=== PATIENT | male | born 1995 ===

== ENCOUNTER 2018-06-11 11:21 | Emergency (ER) | payer OTHER ==
[2018-06-11 11:24] VITALS: BMI 35.9
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
[2018-06-11 14:52] VITALS: BP 119/69; PULSE 76; RESP 17; TEMP 98
[2018-06-11 20:56] VITALS: O2SAT 98
== END 2018-06-11 14:51 | disposition home or self-care (01) ==
LOC: H.ER 11:21
DX: R51 Headache (principal); M54.9 Dorsalgia, unspecified; M25.511 Pain in right shoulder; V43.52XA Car driver injured in collision with other type car in traffic accident, initial encounter; Y92.410 Unspecified street and highway as the place of occurrence of the external cause
CPT/HCPCS: 96372; 99284; J1885